=== PATIENT | female | born 1940 | race Caucasian/White ===

== ENCOUNTER 2024-09-04 15:48 | Outpatient (CLI) | payer MEDICARE, SELFPAY ==
--- NOTE | 2024-09-04 14:00 | DI.RAD_ITS ---
Exam(s) XR STANDING ALIGNMENT EXAM: XR STANDING ALIGNMENT CLINICAL HISTORY: eval alignment for TKA. TECHNIQUE: 2D digital imaging was performed. Standing AP views were performed from the pelvis throu gh the ankles. COMPARISON: CR XR KNEE 3 VIEW LEFT from 02/06/2024 FINDINGS: BONES: No acute fracture is present. No bony destructive lesion is seen. Hardware in upper sacrum. Leg length discrepancy: No significant overall leg length discrepancy. JOINTS: Knees: Right total knee prosthesis show satisfactory alignment. There are degenerative caleb nges of the medial femoral tibial joint space of the left knee. The ankle joints show mild symmetric narrowing bilaterally. The hip joints are unremarkable. SOFT TISSUE: Normal. IMPRESSION: Advanced degenerative changes of the medial femoral tibial joint space of the left knee. The right k nee prosthesis show satisfactory alignment. No significant leg length discrepancy. DATA REPOSITORY: RADIATION DOSE DELIVERED:
== END 2024-09-04 15:49 | disposition home or self-care (01) ==
LOC: DIORS 15:49
PROVIDERS: PCP Nurse Practitioner Family; Referring Provider Nurse Practitioner Family; Visit Provider Student in an Organized Health Care Education/Training Program
DX: M17.12 Unilateral primary osteoarthritis, left knee (principal); M70.62 Trochanteric bursitis, left hip; M76.32 Iliotibial band syndrome, left leg
CPT/HCPCS: 99203; 77073

== ENCOUNTER 2024-10-20 03:59 | Outpatient (CLI) | payer MEDICARE, SELFPAY ==
[2024-10-20 12:58] LABS: HCT 42.8 % (36.0-46.0); HGB 14.2 g/dL (11.2-15.7); MCH 30.1 pg (27.0-33.0); MCHC 33.2 % (32.0-36.0); MCV 91 fL (80-95); MPV 10.6 fL (8.0-11.0); Platelet Count 216 10^3/uL (130-400); RBC 4.71 10^6/uL (3.93-5.22); RDW 11.8 % (11.7-14.6); RDW-SD 39.6 fL; WBC 5.24 10^3/uL (4.4-10.8)
[2024-10-20 13:10] LABS: BUN 25 mg/dL (7-18); CREATININE 1.1 mg/dL (0.55-1.02); Calcium 9.6 mg/dL (8.5-10.1); Chloride 103 mmol/L (98-107); Estimated GFR 49.86 (mL/min/1.73m2); Glucose 88 mg/dL (74-106); Potassium 4.5 mmol/L (3.5-5.1); Sodium 138 mmol/L (136-145)
== END 2024-10-20 04:00 | disposition home or self-care (01) ==
LOC: LBO 04:00
PROVIDERS: PCP Nurse Practitioner Family; Visit Provider Student in an Organized Health Care Education/Training Program
DX: M17.12 Unilateral primary osteoarthritis, left knee (principal); Z01.818 Encounter for other preprocedural examination
CPT/HCPCS: 36415; 80048; 85027

== ENCOUNTER 2024-11-04 07:18 | Day surgery (SDC) | payer MEDICARE, SELFPAY ==
--- NOTE | 2024-10-23 17:35 | ANES_ITS ---
Date of service: 10/23/24 Time of Service: 17:35 Anesthesia Note Report Anesthesia Note: Request from Sarah FOSS to reach out to Mrs. Ivy to address questions she has regarding general vs spinal anesthesia for her upcoming TKA on 11/04/24. Kassandra had her other knee replaced in [place] in 2009 under general aneshesia. She is requesting general anesthesia again since she has had several lumbar fusions. She denies any issues with previous general anesthetics. Her questions were answered and patient reassured.
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
[2024-11-04] VITALS (22 sets, daily range): BP systolic 105–250; BP diastolic 49–131; PULSE 57–77; RESP 0–19; TEMP 36.2–36.6; O2SAT 80–98; BMI 28.9
--- NOTE | 2024-11-04 07:28 | PDOC.DSDIS_ITS ---
Date of service: 11/04/24 Discharge Plan Disposition Patient Disposition: Home Condition: Good Discharge Details Reason For Visit: Left knee DJD Attending Provider: Darvin Zuniga Primary Care Provider: Ken Gallardo Home Meds and New Rx's Prescriptions: New celecoxib [Celebrex] 200 mg capsule 200 mg PO BID PRNQty: 60 0RF Rx Instructions: Take one tablet twice daily for pain and inflammation aspirin 81 mg tablet,delayed release (DR/EC) 81 mg PO BID 30 Days Qty: 60 0RF acetaminophen 500 mg tablet 1,000 mg PO Q8H PRN Qty: 90 0RF Rx Instructions: Take two tablets up to every 8 hours as needed for pain pantoprazole 40 mg tablet,delayed release (DR/EC) 40 mg PO DAILY Qty: 14 0RF dexamethasone 4 mg tablet 4 mg PO DAILY Qty: 2 0RF Rx Instructions: Take one tablet once daily for two days docusate sodium [Colace] 100 mg capsule 100 mg PO BID Qty: 30 0RF gabapentin 300 mg capsule 300 mg PO QHS Qty: 14 0RF Rx Instructions: Take one tablet at bedtime oxycodone 5 mg tablet 5 mg PO Q4H PRNQty: 18 0RF Rx Instructions: Take one tablet up to every 4 hours as needed for severe postoperative pain Continued mecobalamin (vitamin B12) 1,000 mcg tablet,chewable 1,000 mcg PO DAILY calcium carbonate 500 mg calcium (1,250 mg) tablet 500 mg PO DAILY carvedilol 3.125 mg tablet 3.125 mg PO BID Rx Instructions: must administer with a meal/food cholecalciferol (vitamin D3) 50 mcg (2,000 unit) capsule 50 mcg PO DAILY CLINICAL WRITER Thyroid 30 mg tablet 30 mg PO DAILY desloratadine [Clarinex] 5 mg tablet 5 mg PO DAILY PRN (Reason: allergy symptoms) diltiazem HCl 360 mg capsule,extended release 24hr 180 mg PO HS gabapentin 100 mg capsule 100 mg PO BID Collagen 1500 Plus C 500 mg-800 mcg- 50 mg capsule 1 cap PO DAILY Discontinued aspirin [Adult Low Dose Aspirin] 81 mg tablet,delayed release (DR/EC) 81 mg PO DAILY Discharge Instructions Additional Instructions: Total Knee Discharge Instructions Activity: The most important activity is to walk and to work on gentle motion (both flexion and extension). You should try to take short walks a few times a day. It is important that when resting you work on keeping the knee straight. Avoid putting a pillow behind the knee as this will encourage flexion. Work on range of motion exercises as provided by Physical Therapy. - Start outpatient physical therapy within 2 weeks. - You should wear the LAUREN hose on both legs for 2 weeks. You may remove these at night. You may also use any compression sock in place of the LAUREN hose. - Utilize [employer] to review exercises, see videos on exercises and obtain basic information pertaining to your surgery and your recovery. Dressing: Remove the Arya wrap by 2 days after your surgery and put on the LAUREN stocking given to you from the hospital. Keep the surgical dressing (underneath the ARYA wrap) in place for at least one week. After the first week it may be removed and replaced with light gauze and tape or nothing. The wound and dressing may get wet after 3 days but avoid soaking the dressing or otherwise it will need to be changed. Many people prefer covering the dressing with cling wrap (saran wrap) to minimize it from getting soaked. If it gets wet, just pat dry. If it starts to peel off then it will need to be changed. Medications: - You should take Tylenol and anti-inflammatory Celebrex as your primary pain control medications. If the Celebrex is too expensive or not covered, please call the office for another alternative (Advil/Ibuprofen or Naproxen/Aleve) - You have been prescribed a stronger pain medication Oxycodone for breakthrough pain, take as needed as prescribed. - You have also been prescribed a stomach acid reduction agent Pantoprozole to help reduce stomach acid and reflux. - You have been prescribed Gabapentin to take at night for restlessness and nerve pain. Take this dose at nightime and continue with your other normal dose of gabapentin 100 mg in the morning. - You will be taking Aspirin 81mg twice a day for DVT prevention unless instructed otherwise. - You have also been prescribed Decadron to take to control post-operative nausea and pain. You will start this tomorrow. - If you have constipation you should take Colace (which has been prescribed) or Miralax (which is available [id number]). It takes most people 3-4 days to have a bowel movement. Follow-up: 2 weeks If you have any acute concerns or questions, please do not hesitate to contact the office at [phone]. You may contact Dr. Zuniga with any questions after hours through the hospital at [phone] or on his cell phone at [phone]. Referrals: Darvin Zuniga MD [ [facility] STAFF PHYSICIAN] - Equipment/Supplies: Walker Activity:: Elevate Remove Dressings/Wound Care:: Do Not Remove Shower/Bathe:: Cover Diet:: As Tolerated Discharge Orders Discharge Orders: Discharge Order (Routine); Ordered 11/04/24 Ordered By: Sarah Pierre
[2024-11-04] MEDS: Celecoxib 200 MG CAP 400 MG PO (08:01)
[2024-11-04] MEDS: Acetaminophen 500 MG TAB 1000 MG PO (08:01)
[2024-11-04] MEDS: Gabapentin 300 MG CAP PO (08:01)
[2024-11-04] MEDS: Lactated Ringers 1,000 ML 80 ML IV (08:15)
--- NOTE | 2024-11-04 08:47 | W.ANESNERVE ---
Nerve Block Single Injection Procedure Date and Time Date Performed: 11/04/24 Procedure Start: 08:40 Location Where Procedure Performed Procedure Location: Day Surgery Unit Reason Performed: Postoperative Analgesia Requesting Provider: Darvin Zuniga Timeout Performed Timeout Performed: Yes Monitoring Used ECG, Blood Pressure and SpO2 Sterility Sterility: Hand Hygiene, Surgical Cap, Surgical Mask, Sterile Gloves and Chlorhexidine Sedation Given During Procedure Sedation Given (Indicate Dose Given): No Sedation given Patient Mental Status Patient Mental Status: Awake Nerve Block 1st Nerve Block: Laterality: Left Block Type: Adductor Canal Ultrasound Image Saved?: Yes Needle / Catheter Used: 100mm SonoPlex II Local Anesthetic Bolus (Indicate Dose Given): Lidocaine used for local infiltration of skin and Bupivacaine 0.25% Dose:: 7 mL Additives (Indicate Dose Given): None Ultrasound: Sterile probe cover and gel used Nerve Stimulator: Supplement to Ultrasound use and No twitch or parasthesia noted < 0.5 mA Paresthesia: None Procedure Tolerated: No Complications Procedure Outcome: Successful Performed By: Kenneth Martin 2nd Nerve Block: Laterality: Left Block Type: Other (AFCN) Ultrasound Image Saved?: Yes Needle / Catheter Used: 100mm SonoPlex II Local Anesthetic Bolus (Indicate Dose Given): Bupivacaine 0.25% Dose:: 5 mL Additives (Indicate Dose Given): None Ultrasound: Sterile probe cover and gel used Nerve Stimulator: Supplement to Ultrasound use and No twitch or parasthesia noted < 0.5 mA Paresthesia: None Procedure Tolerated: No Complications Procedure Outcome: Successful Performed By: Kenneth Martin
[2024-11-04] MEDS: ceFAZolin 2 GM/50 ML BAG IVPB (09:07)
[2024-11-04] MEDS: TRANEXAMIC ACID/SOD. CHL. 1,000 MG/100 ML BAG 600 MG IVPB (09:15)
--- NOTE | 2024-11-04 09:21 | ROE_ITS ---
Operative Note Operative Note PRE-OP DIAGNOSIS: Left Knee Osteoarthritis POST-OP DIAGNOSIS: same PROCEDURE: Left Total Knee Replacement SURGEON: Darvin Zuniga MANAGER SYSTEMS: Sarah Pierre ANESTHESIA TYPE: Spinal Refer to Anesthesia Record ESTIMATED BLOOD LOSS: 150 PATHOLOGY: none sent COMPLICATIONS: None Patient was transported to: PACU Patient's condition: stable Implants: 1. Depuy Attune Cruciate Retaining Femoral Component, Size 6 Narrow 2. Depuy Attune Fixed Bearing Tibial Component, Size 5 3. Depuy Attune 6x5 CR,FB Poly 4. Depuy Attune Patellar Component, Size 35 Indications: I have seen Kassandra in clinic for symptoms of knee arthritis, confirmed with radiographic findings. She has exhausted nonoperative methods and was having s ignificant limitations in daily function and desired better function and less pain. I discussed the technical details of a knee replacement. I explained the risks of the procedure to include, but not limited to, bleeding, infection, pain, stiffness, fracture, damage to nerves and vessels, damage to muscles and tendons, loosening, need for repeat procedure, blood clot and cardiopulmonary demise. Despite these risks, Kassandra elected to proceed. Findings: There was significant signs of arthritis throughout the knee. Procedure Description: Kassandra was greeted in the preoperative holding area where the correct side was identified and marked. The consent was reviewed with the patient and signed. The history and physical was updated. All questions were answered. Preoperative mediacations were administered: Acetaminophen 1000mg, Celebrex 400mg, and Gabapentin 300mg. An adductor canal block was then administered by the anesthesia team in the DSU. Kassandra was taken back to the operating room. A spinal anesthestic was then administered. The patient was placed into the supine position on the operating room table. Posts were placed for positioning during the procedure. All bony prominences were well padded. Prophylactic antibiotics in the form of Cefazolin were administered. 1g of Tranxemic Acid was given intravenously within 30 minutes of incision. The left leg was then prepped with Chloraprep and draped in a standard fashion with impervious stockinette and extremity drape. A second prep with Chloraprep was performed prior to placing Ioband. A timeout to confirm correct identity, side and site, procedure, allergies, anesthesia, and medical concerns was performed. With the knee in some flexion, a midline incision was made overlying the knee. Full thickness skin flaps were raised once the extensor mechanism was encountered. These were raised medially and laterally. Any bleeding was controlled with electrocautery. Once the extensor mechanism was fully exposed, a medial parapatellar arthrotomy was performed in a flexed position. All bleeding from the arthrotomy and the geniculate arteries was coagulated. A medial subperiosteal peel was performed with electrocautery to the midcoronal plane. The fat pad was removed while keeping the patellar tendon protected. The anterior distal femur synovium was removed for later visualization. The ACL and PCL were resected and the anterior horn of the lateral meniscus was transected. The knee was then flexed with the patella everted. Large osteophytes from the tibia were removed. Large osteophytes from the femur were removed. Using a step drill, and based on preoperative templating, the femoral canal was entered. This was done with a step drill without any difficulty. The intramedullary distal femoral cut guide was inserted, set to a 5 degree valgus cut and 8mm cut thickness. The distal femoral cut guide was then held in position and pinned. With the soft tissues protected, the distal cut was performed. This was passed over a few times to ensure a planar cut. I then turned attention to the tibia. The extramedullary guide was placed onto the leg. The distal aspect was slid medial to adjust for position of center of ankle and stay in line with shaft of the tibia. Approximately 3-5 degrees of posterior slope was kept in the proximal cutting guide. The center of the guide was aligned with the PCL. The stylus was used to assess cut thickness. The medial side, most involved side, was set for a 5mm cut. This was then held in position and pinned into place with 2 additional pins and a cross pin for stability. The medial and lateral collateral ligaments were protected and the cut was performed. With this completed, it was assessed and noted to be of appropriate dimensions. The guide was removed. A spacer block was inserted and the knee was brought into extension. The 5mm spacer block provided full extension, without hyperextension and with stability of both the medial and lateral collateral ligaments was assessed. The pins from the femur and the tibia were then removed. The distal femur was then sized. The anterior stylus was placed onto the lateral ridge of the anterior femur. This indicated a size 6 narrow femur. The external rotation of the guide was adjusted to 3 degrees to match the epicondylar axis, perpendicular to [place]?s line. The 4-in-1 cutting guide was the placed. The posterior medial femur cut was evaluated and appeared of good thickness. The spacer block was inserted underneath the cutting guide and stability was confirmed in 90 degrees of flexion. An suellen wing was used to confirm appropriate position of the anterior cut to avoid notching. This cutting guide was ensured to be flush on the cut surface and then pinned into place with headed pins. While protecting the soft tissues, quad tendon, and collateral ligaments, the anterior and posterior cuts were performed with a saw. The central two pins were removed and the posterior and anterior chamfers were cut next. The notch-cutting guide was placed. This was pinned to lateralize the femoral component as much as possible while keeping it flush on the cut surface. This was then pinned into position. A reciprocating saw was used to make the small notch cut. A trial CR femoral component was then inserted, impacted down to the cut surfaces, and the lug holes were drilled. A provisional trial tibial component was placed and the knee was brought through range of motion. There was noted to be excellent extension and flexion. There was no significant instability. The patella was tracking without thumbs. The tibial cut surface was fully exposed. The medial and lateral menisci were removed. The tibia was then sized as a 5. The tibia had been previously marked during trialing to correspond to the center of the tibial component to help with rotation. The trial was aligned to this con, approximately rotated to the medial 1/3rd of the tibial tubercle. The trial was pinned into place. The tibia was prepared with a reamer and a keel punch. The knee was then brought into extension and the patella was measured as 24mm. Using the patellar clamp and cut guide, this was resected to a flat surface with at least 13mm of thickness remaining. The size 35 patella fit the best. This was oriented and then clamped into position. The lugs were drilled. The trial components were removed. The final components, except for the polyethylene were opened on the back table. The periosteal and capsular tissues, especially posteriorly, around the knee were then systematically injected with a periarticular cocktail consisting of 246mg of Ropivacaine, 0.5mg of Epinephrine, 0.08mg of Clonidine, and 30mg of Ketorolac, diluted to 100cc.. The tourniquet was then inflated to 275mmHg. The knee was thoroughly irrigated with a pulse lavage and dried. On the back table, with the implants opened, the cement was mixed. 2 batches of medium viscosity cement were prepared with vacuum assistance. After the cement was ready it was placed on to the back side of the tibial component. A small amount was placed onto the posterior flange of the femur. Cement was manual pressurized and impregnated into the cut surface of the tibia. The tibial c omponent was then inserted into the cut surface and impacted into position. Excess cement was removed and the component was reimpacted. Again, excess cement was removed and our attention was then turned to the femur. The femoral cut surface was once again dried and cement was manually impacted into the cut surface. The femoral component was lined with the lug holes and impacted. Excess cement was removed. It was ensured to be down against the cut surface. The trial polyethylene was then inserted and the leg was brought out into full extension for the duration of the cement curing process, approximately 18min. Cement was lastly manually impacted into the cut surface of the patella and the patellar button was clamped into position and held. During this process attention was turned to the gutters of the knee and for all interfaces for any excess cement. While the cement was hardening, the knee was irrigated with Surgiphor Betadine solution. It was allowed to sit in the knee for 3 minutes and then it was thoroughly irrigated with saline. After the cement had finally cured, approximately 18min, the clamp was removed from the patella and the knee was taken through range of motion. A size 5mm polyethylene component provided the best range of motion and stability with less than 2mm gapping with medial and lateral stress and full extension without significant hyperextension. The patella was tracking with a no-thumbs technique. The trial poly was removed and once again the knee was checked for any loose, excess, or errant cement. The poly component was then inserted into position after cleaning and drying the tibial tray. The capsule was then reapproximated with a No. 1 Vicryl at multiple locations. The capsule was finally closed with a No. 2 Stratafix, barbed suture. The tourniquet was then released and the arthrotomy appeared watertight without significant bleeding. The second dosing of 1g TXA was started. Deep tissues were then reapproximated with 0 Vicryl and 2-0 Vicryl. The skin was closed with a running 3-0 Monocryl in a subcuticular fashion. This was reinforced with skin glue. A Mepilex silver dressing was applied along with a [id number] SARBJIT wrap. A CryoCuff was applied. Kassandra was transferred to the hospital bed without difficulty an suffering no apparent complication. Kassandra has a good prognosis. Physical therapy will start today and without restrictions, weight-bearing as tolerated. Aspirin 81mg BID will be used for DVT prophylaxis. Date of Procedure: 11/04/24
--- NOTE | 2024-11-04 12:02 | W.ANESPOSTOP ---
Postoperative Evaluation Date, Time and Location Date Performed: 11/04/24 Time Performed: 12:02 Patient Location: Day Surgery Unit Vital Signs Most Recent Imported Vital Signs: Most Recent Vital Signs Temp Pulse Resp BP Pulse Ox 36.2 C L 72 18 163/85 H 95 11/04/24 11:48 11/04/24 11:48 11/04/24 11:48 11/04/24 11:48 11/04/24 11:48 Pain Score Most Recent Pain Score: Most Recent Pain Score Pain Level 0 11/04/24 11:48 Assessment Mental Status: Awake (Alert & Oriented to Patient Baseline) Airway and Respiratory Function: Patent airway with normal (patient baseline) respiratory exam Cardiovascular Function: Hemodynamically Stable Hydration Status: Adequately Hydrated Nausea & Vomiting: No Nausea or Vomiting Pain: Pain is tolerable per patient Peripheral Nerve Block: Regional nerve block not resolved at time of post operative discharge
--- NOTE | 2024-11-04 15:07 | PT.INIE ---
PT Notes Visit Reasons: Left knee DJD Physical Therapy Day Surgery Initial Evaluation Date: 11/04/2024 Referring Doctor: Sarah Pierre/Dr. Zuniga PT Orders: PT CONSULT: Status post Ortho surgery Precautions: WBAT, activity as tolerated, x 2 weeksTEDs Patient Profile/Admitting Diagnosis: Patient is 84-year-old female presenting status post elective left TKA secondary to DJD under nerve block. Postop uncomplicated PMHX: Left IT band syndrome, left hip trochanteric bursitis, asymmetrical hearing loss, perforation of tympanic membrane left ear Social History/Home Situation: Patient resides alone no steps to enter 1 level. Her granddaughter will be assisting her. Independent with ADLs ambulation meal prep medication management prior to surgery Equipment Owned/DME: FWW, cane Subjective: Patient reports she does not have any stairs to enter her home although she does do stairs at family members houses. Objective: [] General Observation: Patient presents semireclined on stretcher Cryo/Cuff to left knee granddaughter present Mental Status: Alert and oriented x 4 pleasant cooperative agreeable to participate in PT assessment Pain: 2/10 left knee ROM: [] Right Upper Extremity: Within normal limits Left Upper Extremity: Within normal limits Right Lower Extremity: Within normal limits Left Lower Extremity: Within normal limits except knee 0 to 98 degrees Strength: [] Right Upper Extremity: 5/5 Left Upper Extremity: 5/5 Right Lower Extremity: 5/5 Left Lower Extremity: Hip flexion: 3/5; hip abduction: 3/5; hip extension: 3 -/5; knee extension: 3-/5; knee flexion: 2+ /5 ankle DF: 3/5 ; ankle PF: 3 /5; patient demonstrates slight quad lag during limited range straight leg raise. Patient requires cues to perform quad set without compensation of hamstring and glutes Sensation: Intact Bed Mobility/Transfers: [] Supine to sit independent Sit to stand [] supervision Stand to sit supervision Bed to chair [supervision with FWW Gait: Ambulated 200 feet with FWW with supervision demonstrating reciprocal gait pattern slight hip hike on left to clear left foot during swing phase patient demonstrates adequate foot clearance Stairs: 2 steps with 2 rails supervision cues for sequencing Balance: [] Static Sitting: Normal Dynamic Sitting: Good Static Standing: Good Dynamic Standing: Fair plus Special Tests: [] Mobility Limitations Standardized Measure [] [facility] AM-PAC 6 clicks Basic Mobility Inpatient Short Form: [] Raw Score: 23 CMS Score: 11.20% Informed Consent/Education: Patient instructed in purpose of PT consult. Packet containing TKA exercise protocol has been given to patient. Education and training on initial set of exercises that can be done at home have been completed with patient. Assessment: Patient presents with clinical signs and symptoms consistent with current/admitting diagnoses that have resulted to mobility limitations, gait instability, generalized weakness, and impairment of motor control as demonstrated by the following impairment level findings: 1. Decreased strength to left knee major muscle groups 2. Impaired standing balance 3. Limitation of joint range of motion in left knee Impairments are contributing to the following functional limitations: 1. Inability to safely ambulate without assistive device 2. Increase completion time for mobility ADL performance 3. Increased fall risk Patient is assessed as a [] complexity based on the following: History: 84-year-old female with impairment level findings, functional limitations, and past medical history as indicated above Examination: Demonstrable impairment in strength, balance, and mobility level with underlying impairments and functional limitations as documented above Presentation: Stable Decision Making: [] Low Goals: N/A. Plan of Care/Treatment Plan: N/A. DISCHARGE RECOMMENDATIONS: Home with outpatient PT as scheduled TREATMENT CODE/TIME: [id number] Thank you for the opportunity to participate in the care of this patient. [facility]
== END 2024-11-04 13:46 | disposition home or self-care (01) ==
PROVIDERS: PCP Nurse Practitioner Family; Visit Provider Student in an Organized Health Care Education/Training Program
PROC: (CPT 27447; principal; 2024-11-04 09:00)
DX: M17.12 Unilateral primary osteoarthritis, left knee (principal); E03.9 Hypothyroidism, unspecified; E78.5 Hyperlipidemia, unspecified; Z86.718 Personal history of other venous thrombosis and embolism; I10 Essential (primary) hypertension; G89.18 Other acute postprocedural pain; M25.562 Pain in left knee
CPT/HCPCS: 27447; 64447; 64450; 97161; C1776; J0665; J0690; J1100; J2405; J2704

== ENCOUNTER 2024-11-17 11:30 | Outpatient (CLI) | payer MEDICARE, SELFPAY ==
--- NOTE | 2024-11-17 11:00 | DI.RAD_ITS ---
Exam(s) XR KNEE LT 1V XR STANDING ALIGNMENT EXAM: XR STANDING ALIGNMENT CLINICAL HISTORY: 1ST POST OP L TKA. TECHNIQUE: 2D digital imaging was performed. Standing AP views were performed from the pelvis throu gh the ankles. COMPARISON: CR XR STANDING ALIGNMENT from 09/04/2024 CR XR KNEE LT 1V from 11/17/2024 FINDINGS: BONES: No acute fracture is present. No bony destructive lesion is seen. Rods in the lumbar spine. Leg length discrepancy: No significant overall leg length discrepancy. JOINTS: Knees: Bilateral total knee prostheses are unremarkable. The ankle joints are unremarkable. The hip joints are unremarkable. SOFT TISSUE: Anterior soft tissue swelling of the left knee. Bilateral lower leg and ankle edema, gr eater on the left. IMPRESSION: Unremarkable bilateral total knee prostheses. No significant leg length discrepancy. DATA REPOSITORY: RADIATION DOSE DELIVERED:
== END 2024-11-17 11:31 | disposition home or self-care (01) ==
LOC: DIORS 11:31
PROVIDERS: PCP Nurse Practitioner Family; Referring Provider Nurse Practitioner Family; Visit Provider Student in an Organized Health Care Education/Training Program
DX: Z96.652 Presence of left artificial knee joint (principal); Z47.1 Aftercare following joint replacement surgery
CPT/HCPCS: 99024; 73560; 77073

== ENCOUNTER 2024-12-15 15:41 | Outpatient (CLI) | payer MEDICARE, SELFPAY ==
--- NOTE | 2024-12-15 14:02 | DI.RAD_ITS ---
Exam(s) XR HIP LT COMPLETE AP PELVIS EXAM: XR HIP LT COMPLETE AP PELVIS CLINICAL HISTORY: left hip pain. TECHNIQUE: 2D digital imaging was performed. Two views. COMPARISON: No exams were available for comparison FINDINGS: BONES: No acute fracture is present. No bony destructive lesion is seen. Hardware is noted in the sac rum. JOINTS: No dislocation present. [id number] narrowing of the left hip joint space. Minimal toby articular spurring. The right hip joint space is maintained. Third degenerative changes of both SI joints. SOFT TISSUE: Normal. IMPRESSION: Mild degenerative changes of the left hip. Postsurgical changes of the sacrum. Degenerative changes of the SI joints. DATA REPOSITORY: RADIATION DOSE DELIVERED:
== END 2024-12-15 15:42 | disposition home or self-care (01) ==
LOC: DIORS 15:42
PROVIDERS: PCP Nurse Practitioner Family; Referring Provider Nurse Practitioner Family; Visit Provider Physician Assistant
DX: M70.62 Trochanteric bursitis, left hip (principal); M76.32 Iliotibial band syndrome, left leg; Z47.1 Aftercare following joint replacement surgery; Z96.652 Presence of left artificial knee joint
CPT/HCPCS: 20610; 99213; J1010; 73502

== ENCOUNTER → 2025-01-26 13:32 | Outpatient (BNVA) | payer MEDICARE, SELFPAY | PROVIDERS: PCP Nurse Practitioner Family; Referring Provider Nurse Practitioner Family; Visit Provider Student in an Organized Health Care Education/Training Program | DX: Z47.1 Aftercare following joint replacement surgery (principal); M70.52 Other bursitis of knee, left knee; Z96.652 Presence of left artificial knee joint | CPT/HCPCS: 99024 ==

== ENCOUNTER → 2025-03-16 13:46 | Outpatient (BNVA) | payer MEDICARE, SELFPAY | PROVIDERS: PCP Nurse Practitioner Family; Referring Provider Nurse Practitioner Family; Visit Provider Student in an Organized Health Care Education/Training Program | DX: Z96.652 Presence of left artificial knee joint (principal); M70.62 Trochanteric bursitis, left hip; M76.32 Iliotibial band syndrome, left leg; M16.12 Unilateral primary osteoarthritis, left hip; M70.52 Other bursitis of knee, left knee | CPT/HCPCS: 20610; 20550; J1010 ==

== ENCOUNTER 2025-04-13 15:58 | Outpatient (CLI) | payer MEDICARE, SELFPAY ==
--- NOTE | 2025-04-13 15:45 | DI.RAD_ITS ---
Exam(s) XR THORACOLUMB JUNCT 2V XR LUMBAR SPINE AP, LAT EXAM: XR THORACOLUMB JUNCT 2V INDICATION: DEGENERATIVE SCOLIOS. COMPARISON: None TECHNIQUE: 2D digital imaging was performed. Five views. FINDINGS: Posterior fusion hardware from L1 through S1. The hardware appears intact. Disc spacers in place. Severe narrowing of the T12-L1 disc space. The hardware obscures visualization of the bony detail of the lumbar spine. There are degenerative changes of the inferior SI joints. No lower thoracic compression fractures are present. There is multilevel disc space narrowing is small endplate osteophytes. Minimal scoliosis at the lower thoracic region. The aorta is calcified but normal in diameter. Heart size is normal. Visualized lung bases are clear. IMPRESSION: Postsurgical changes with extensive hardware in the lumbar spine. Degenerative changes in the lower thoracic spine. DATA REPOSITORY: RADIATION DOSE DELIVERED:
== END 2025-04-13 15:59 | disposition home or self-care (01) ==
LOC: DIORS 15:58
PROVIDERS: PCP Nurse Practitioner Family; Referring Provider Nurse Practitioner Family; Visit Provider Student in an Organized Health Care Education/Training Program
DX: Z47.1 Aftercare following joint replacement surgery (principal); M41.50 Other secondary scoliosis, site unspecified; Z96.652 Presence of left artificial knee joint; Z98.890 Other specified postprocedural states; M54.50 Low back pain, unspecified
CPT/HCPCS: 99213; 72080; 72100

== ENCOUNTER 2025-04-13 17:23 | Outpatient (REF) | payer MEDICARE, SELFPAY ==
[2025-04-13 17:59] LABS: Clarity Clear; Source Synovial
[2025-04-13 18:00] LABS: Mononuclear Cells 80 %; Nucleated Cells 549 uL (0); Polynuclear Cells 20 %
== END 2025-04-13 17:24 | disposition home or self-care (01) ==
LOC: LBN 17:23
PROVIDERS: PCP Nurse Practitioner Family; Visit Provider Student in an Organized Health Care Education/Training Program
DX: Z96.652 Presence of left artificial knee joint (principal)
CPT/HCPCS: 87070; 87205; 89051

== ENCOUNTER → 2025-05-25 14:33 | Outpatient (BNVA) | payer MEDICARE, SELFPAY | PROVIDERS: PCP Nurse Practitioner Family; Referring Provider Nurse Practitioner Family; Visit Provider Physician Assistant | DX: Z47.1 Aftercare following joint replacement surgery (principal); Z96.651 Presence of right artificial knee joint | CPT/HCPCS: 99213 ==

== ENCOUNTER → 2025-08-06 10:13 | Outpatient (BNVA) | payer MEDICARE, SELFPAY | PROVIDERS: PCP Nurse Practitioner Family; Referring Provider Nurse Practitioner Family; Visit Provider Student in an Organized Health Care Education/Training Program | DX: M16.11 Unilateral primary osteoarthritis, right hip (principal); M70.61 Trochanteric bursitis, right hip | CPT/HCPCS: 20611; J1010 ==

== ENCOUNTER → 2025-10-01 13:17 | Outpatient (BNVA) | payer MEDICARE, SELFPAY | PROVIDERS: PCP Nurse Practitioner Family; Referring Provider Nurse Practitioner Family; Visit Provider Physician Assistant | DX: M70.61 Trochanteric bursitis, right hip (principal) | CPT/HCPCS: 20610; J1010 ==